=== PATIENT | male | born 1955 | race Caucasian/White ===

== ENCOUNTER 2021-05-25 08:44 | Outpatient (REF) | payer BC, SELFPAY ==
--- NOTE | ~2021-05-25 | US_ITS ---
EXAMINATION: US RETROPERITONEAL LIMITED (AORTA) CLINICAL INFORMATION: AAA without rupture. COMPARISON: Ultrasound aorta 11/24/2019 which measure the aneurysm by 3.7 x 3.7 cm. The ultrasound of the aorta dated 07/09/2018 demonstrated a 3.7 x 3.6 cm distal abdominal aortic aneurysm. TECHNIQUE: Steven-scale, color Doppler and spectral Doppler evaluation of the abdominal aorta. FINDINGS: There is a distal abdominal aortic aneurysm measuring 3.6 x 3.7 cm. There is scattered atherosclerotic disease present. The lumen appears diffusely irregular throughout its course. The measurements of the aorta in maximum AP and transverse dimensions respectively are as follows: Proximal: 3.2 x 3.1 cm. Mid: 2.9 x 3.0 cm. Distal: 3.6 x 3.7 cm. PSV: 93 cm/s. The measurements of the common iliac arteries in maximum AP and TRV dimensions are as follows: Right Common Iliac Artery: 1.3 x 1.5 cm. Left Common Iliac Artery: 1.3 x 1.3 cm. US/US abdominal aortic aneurysm IMPRESSION: 1. There is a 3.6 x 3.7 cm abdominal aortic aneurysm.. There is no change in the size when compared to the previous study dated 11/24/2019 and 07/09/2018.
== END 2021-05-25 08:45 | disposition home or self-care (01) ==
LOC: HO.US 08:44
PROVIDERS: PCP Internal Medicine; Visit Provider Internal Medicine
DX: I71.4 Abdominal aortic aneurysm, without rupture (principal)
CPT/HCPCS: 76706

== ENCOUNTER → 2021-06-13 09:49 | Outpatient (BNVA) | payer BC, SELFPAY | PROVIDERS: PCP Internal Medicine; Referring Provider Internal Medicine; Visit Provider Internal Medicine | DX: I25.10 Atherosclerotic heart disease of native coronary artery without angina pectoris (principal); I71.4 Abdominal aortic aneurysm, without rupture; Z95.5 Presence of coronary angioplasty implant and graft | CPT/HCPCS: 93005 ==

== ENCOUNTER 2022-06-07 10:46 | Outpatient (REF) | payer BC, SELFPAY ==
--- NOTE | ~2022-06-07 | US_ITS ---
EXAMINATION: US RETROPERITONEAL LIMITED (AORTA) CLINICAL INFORMATION: Abdominal aortic aneurysm without rupture. COMPARISON: Ultrasound aorta 05/25/2021 and 11/24/2019. TECHNIQUE: Steven-scale, color Doppler and spectral Doppler evaluation of the abdominal aorta. FINDINGS: There is fusiform aneurysm of the abdominal aorta. Scattered atherosclerotic plaque is seen. The measurements of the aorta in maximum AP and transverse dimensions respectively are as follows: Proximal: 3.3 x 2.9 cm. Mid: 2.5 x 2.8 cm. Distal: 4.1 x 3.3 cm. Previously measuring 3.6 x 3.7 cm. PSV: 76 cm/s. The measurements of the common iliac arteries in maximum AP and TRV dimensions are as follows: Right Common Iliac Artery: 1.1 x 1.2 cm. Left Common Iliac Artery: 1.0 x 1.2 cm. US/US abdominal aortic aneurysm IMPRESSION: Fusiform abdominal aortic aneurysm with maximum diameter 4.1 cm transverse diameter, previously measuring 3.7 cm.
== END 2022-06-07 10:47 | disposition home or self-care (01) ==
LOC: HO.US 10:46
PROVIDERS: Visit Provider Internal Medicine
DX: I71.4 Abdominal aortic aneurysm, without rupture (principal)
CPT/HCPCS: 76706

== ENCOUNTER 2022-06-15 07:38 | Outpatient (REF) | payer BC, SELFPAY ==
[2022-06-15 08:49] LABS: Alanine Aminotransferase 18 U/L (0-40); Albumin Level 4.3 g/dL (3.5-5.0); Alkaline Phosphatase 79 U/L (39-117); Aspartate Amino Transferase 23 U/L (5-37); Bilirubin Direct 0.3 mg/dL (0.0-0.5); Bilirubin Total 0.7 mg/dL (0.0-1.0); Cholesterol 151 mg/dL; HDL Cholesterol 48 mg/dL; LDL Cholesterol Calculated 83 mg/dl; Triglycerides 104 mg/dL
== END 2022-06-15 07:39 | disposition home or self-care (01) ==
LOC: HO.LAB 07:38
PROVIDERS: Visit Provider Internal Medicine
DX: I25.10 Atherosclerotic heart disease of native coronary artery without angina pectoris (principal); E78.5 Hyperlipidemia, unspecified
CPT/HCPCS: 36415; 80061; 80076

== ENCOUNTER → 2022-06-18 10:40 | Outpatient (BNVA) | payer BC, SELFPAY | PROVIDERS: PCP Internal Medicine; Referring Provider Internal Medicine; Visit Provider Internal Medicine | DX: I25.10 Atherosclerotic heart disease of native coronary artery without angina pectoris (principal); I71.4 Abdominal aortic aneurysm, without rupture | CPT/HCPCS: 93005 ==

== ENCOUNTER 2022-11-22 07:51 | Outpatient (REF) | payer BC, SELFPAY ==
--- NOTE | ~2022-11-22 | US_ITS ---
EXAMINATION: US RETROPERITONEAL LIMITED (AORTA) CLINICAL INFORMATION: Abdominal aortic aneurysm, without rupture. COMPARISON: US retroperitoneal limited (aorta) 06/07/2022 and 05/25/2021. TECHNIQUE: Steven-scale, color Doppler and spectral Doppler evaluation of the abdominal aorta. FINDINGS: The measurements of the aorta in maximum AP and transverse dimensions respectively are as follows: Proximal: 3.2 x 3.1 cm. Mid: 2.6 x 2.6 cm. Distal: 3.6 x 3.9 cm. PSV: 58.1 cm/s. The measurements of the common iliac arteries in maximum AP and TRV dimensions are as follows: Right Common Iliac Artery: 1.3 x 1.1 cm. Left Common Iliac Artery: 1.2 x 1.1 cm. US/US abdominal aortic aneurysm IMPRESSION: Mild aneurysmal dilatation of the distal abdominal aorta measuring 3.6 x 3.9 cm.
== END 2022-11-22 07:52 | disposition home or self-care (01) ==
LOC: HO.US 07:51
PROVIDERS: Visit Provider Internal Medicine
DX: I71.40 Abdominal aortic aneurysm, without rupture, unspecified (principal)
CPT/HCPCS: 76706

== ENCOUNTER → 2022-11-23 07:56 | Outpatient (REF) | payer BC, SELFPAY ==
--- NOTE | 2022-11-23 08:01 | CA_ITS ---
Transthoracic Echocardiogram Patient (Last, First, Middle): Winston John, Gender: Male Date of : 1955 Age: 67 Procedure Date: 11/23/2022 Procedure Type: Transthoracic Echocardiogram Location: OP Height: 182.88 cm Weight: 83.01 kg BSA: 2.05 m2 Heart Rate: bpm BP: 120 / 70 mmHg Director Search Marketing Strategies: CY Mckee MD: Joe Manjarrez MD Pickers Material Handlers: Keagan Elliott MD Symptoms: I71.4 - Abdominal aortic aneurysm, without rupture Study Quality: Technically Difficult/Contrast ECG Rhythm: Sinus Conclusions: - Grade 1 diastolic dysfunction otherwise essentially normal study Findings Procedure Information Contrast agent, definity, is being given per protocol without apparent complications. Left Ventricle Normal left ventricular size, thickness, and systolic function. The visually estimated ejection fraction is between 60-65%. Spectral Doppler is indicative of an impaired relaxation filling pattern. E/E prime ratio is <8, consistent with normal filling pressures. Evidence suggests grade I (mild) diastolic dysfunction. Right Ventricle Normal right ventricular cavity size and systolic function. Atria Both atria are normal in size. There is lipomatous hypertrophy of the interatrial septum. There is no evidence of interatrial shunt. Aortic Valve The aortic valve structure and function is likely normal. There is no aortic valve stenosis. There is no aortic valve regurgitation. Mitral Valve Normal mitral valve structure and function. There is no mitral valve regurgitation. There is no mitral valve stenosis. Pulmonic Valve The pulmonic valve was not well visualized. Tricuspid Valve Likely normal tricuspid valve structure and function. Tricuspid regurgitation envelope is inadequate for calculation of right ventricular systolic pressure. Indeterminate right atrial pressure. Great Vessels All visible segments of the aorta are normal in size. The pulmonary artery was not well visualized. Venous The inferior vena cava is normal in size and collapses greater than 50% with inspiration. Pericardium/Pleural There is no evidence of pericardial effusion. Measurements 2D Linear Measurements IVSd: 1.05 0.6-0.9/0.6-1.0 cm LVIDd: 5.43 3.9-5.3/4.2-5.9 cm LVIDd Index: 2.65 2.4-3.2/2.2-3.1 cm/m2 LVIDs: 4.04 2.0-3.6 cm LVPWd: 1.03 0.7-1.1 cm LA Diam: 3.00 2.7-3.8/3.0-4.0 cm LAIDs Index: 1.46 1.5-2.3 cm/m2 LV Mass: 274.00 67-162/88-224 g LV Mass Index: 133.66 43-95/49-115 g/m2 LVOT Diam: 2.40 3.0+(-)1.3 cm 2D Systolic Function EF 4C: 61.40 >55% EF 2C: 65.30 >55% EF BiP: 62.90 >55% Mitral Valve MV Pk E: 0.65 MV PK A: 0.71 MV Decel Time: 252.00 E/A: 0.90 E'Lateral: 9.57 E'Medial: 10.10 E/E' Med: 6.40 E/E' Lat: 6.80 PHT: 74.00 MVA PHT: 2.97 Decel [place]: 2.57 Aortic Valve AoV Pk Bryn: 1.08 AoV Mn Bryn: 0.73 AoV VTI: 0.24 AoV Pk Grad: 5.00 Aov Mn Grad: 3.00 KRISHNA Cont.VTI: 3.95 LVOT LVOT Pk Bryn: 0.90 LVOT Mn Bryn: 0.65 LVOT VTI: 0.21 LVOT Pk Grad: 3.00 LVOT Mn Grad: 2.00 LVOT Diam: 2.40 LVOT Area: 4.52 Diastolic Function MV Pk E: 0.65 MV Pk A: 0.71 E/A: 0.90 E'Medial: 10.10 E/E' Med: 6.40 E' Laterial: 9.57 E/E' Lat: 6.80 Right Ventricle TAPSE (mm): 23.00 TVS' Bryn: 11.60 Tricuspid Valve RA Press: 3.00 Great Vessels Aorta Sinus of Valsalva: 3.50 2.0-3.5 cm Ao Asc: 3.60 2.1-3.4 cm Pulmonary Valve PV Pk Bryn: 0.80 Peak PV Grad: 3.00 Updated in Other Vendor System with Status of Final Keagan Elliott MD electronically signed on 11/24/2022 1:52:49 PM with status of Final
== END ==
LOC: HO.CARD 07:56
PROVIDERS: Visit Provider Internal Medicine
DX: I71.40 Abdominal aortic aneurysm, without rupture, unspecified (principal)
CPT/HCPCS: 93306; Q9957

== ENCOUNTER → 2023-01-14 10:12 | Outpatient (BNVA) | payer BC, SELFPAY | PROVIDERS: PCP Family Medicine; Referring Provider Family Medicine; Visit Provider Internal Medicine | DX: Z13.89 Encounter for screening for other disorder (principal) ==

== ENCOUNTER 2023-01-17 08:28 | Outpatient (REF) | payer BC, SELFPAY ==
[2023-01-17 09:08] LABS: Basophils Percent Auto 0.4 % (0-2); Eosinophils Absolute Auto 0.3 X10*3/uL (0.0-0.4); Eosinophils Percent Auto 4.3 % (0-4); Hematocrit 40.5 % (42.0-52.0); Hemoglobin 13.4 g/dl (14.0-18.0); Imm Gran Abs Auto 0.02 X10*3/uL (0.00-0.03); Imm Gran Pct Auto 0.3 % (0.0-0.4); Lymphocytes Absolute Auto 1.9 X10*3/uL (1.2-4.9); Lymphocytes Percent Auto 26.7 % (20-40); MANUAL DIFF FLAG NO; Mean Corpuscular HGB Conc 33.1 g/dl (31.0-36.0); Mean Corpuscular Hemoglobin 29.7 pg (27.0-33.0); Mean Corpuscular Volume 89.8 fL (80.0-98.0); Mean Platelet Volume 9.1 fL (9.4-12.4); Monocytes Absolute Auto 0.7 X10*3/uL (0.1-1.2); Monocytes Percent Auto 10.2 % (2-11); Neutrophils Absolute Auto 4.2 x10*3/uL (2.0-8.3); Neutrophils Percent Auto 58.1 % (45-73); Platelet Count 269 X10*3/uL (160-400); Red Blood Count 4.51 X10*6/uL (4.60-5.80); Red Cell Distribution Width 12.8 % (11.0-16.0); White Blood Count 7.2 X10*3/uL (4.8-10.8)
[2023-01-17 09:44] LABS: Appearance Urine Cloudy; Color Urine Yellow; Glucose Urine UA Negative (Negative); Leukocyte Esterase Urine Negative (Negative); Nitrite Urine Negative (Negative); PH 5.5 (5.0-9.0); Urine Blood Negative (Negative); Urine Ketones Negative (Negative); Urine Protein Negative (Neg-Trace)
[2023-01-17 10:11] LABS: Creatinine Urine 143.93 mg/dL; Microalbum/Creatinine Ratio Ur 4.8 ug/mg cr
[2023-01-17 11:02] LABS: Albumin Level 4.2 g/dL (3.5-5.0); Alkaline Phosphatase 80 U/L (39-117); Anion Gap 12 (12-20); Aspartate Amino Transferase 28 U/L (5-37); Blood Urea Nitrogen 17 mg/dL (9-16); Calcium 9.5 mg/dL (8.4-10.2); Carbon Dioxide 25 mmol/L (22-29); Chloride 108 mmol/L (96-108); Cholesterol 142 mg/dL; Estimated Glomerular Filt Rate > 60; Glucose Fasting 90 mg/dL (60-99); HDL Cholesterol 41 mg/dL; LDL Cholesterol Calculated 80 mg/dl; Potassium 4.7 mmol/L (3.3-5.1); Sodium 140 mmol/L (135-145); Total Protein 6.5 g/dL (6.5-8.0); Triglycerides 106 mg/dL
[2023-01-17 11:08] LABS: Prostate Specific Antigen Scr 1.79 ng/mL (<0.05-4.0); TSH reflex Free T4 1.28 uIU/mL (0.32-4.0)
[2023-01-17 11:20] LABS: Alanine Aminotransferase 23 U/L (0-40)
== END 2023-01-17 08:29 | disposition home or self-care (01) ==
LOC: HO.LAB 08:28
PROVIDERS: PCP Family Medicine; Visit Provider Family Medicine
DX: Z00.00 Encounter for general adult medical examination without abnormal findings (principal); Z12.5 Encounter for screening for malignant neoplasm of prostate; I10 Essential (primary) hypertension
CPT/HCPCS: 36415; 80053; 80061; 81003; 82043; 84153; 84443; 85025

== ENCOUNTER 2023-02-15 08:59 | Outpatient (REF) | payer BC, SELFPAY ==
--- NOTE | ~2023-02-15 | XR_ITS ---
EXAMINATION: XR SHOULDER, LEFT CLINICAL INFORMATION: Reason for Exam M25.519 - Pain in unspecified shoulder COMPARISON: None TECHNIQUE: Four views of the shoulder. FINDINGS: No acute fracture or dislocation. Mild degenerative changes of the acromioclavicular and glenohumeral joints with degenerative spurring and subchondral cystic change. Soft tissues are unremarkable. XR/XR shoulder LT min 2V IMPRESSION: * Mild degenerative changes of the shoulder.
--- NOTE | ~2023-02-15 | XR_ITS ---
EXAMINATION: XR SHOULDER, RIGHT CLINICAL INFORMATION: Reason for Exam M25.519 - Pain in unspecified shoulder COMPARISON: None TECHNIQUE: Four views of the shoulder. FINDINGS: No acute fracture or dislocation. Mild degenerative changes of the acromioclavicular joint with degenerative spurring. Soft tissues are unremarkable. XR/XR shoulder RT min 2V IMPRESSION: * Mild degenerative changes of the shoulder.
== END 2023-02-15 09:00 | disposition home or self-care (01) ==
LOC: HO.XRAY 08:59
PROVIDERS: PCP Family Medicine; Visit Provider Family Medicine
DX: M25.512 Pain in left shoulder (principal); M25.511 Pain in right shoulder
CPT/HCPCS: 73030

== ENCOUNTER 2023-05-09 10:43 | Outpatient (AMB) | payer BC, SELFPAY ==
--- NOTE | 2023-05-09 10:55 | MHC.OFFVIS ---
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 Patient reports that he fell from a ladder many years ago while in the [employer].Since this injury he has had ongoing pain that has worsened over the last two months. He has tried and failed Physical therapy with no improvement. Feels increased pain with driving and sleeping. 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 The patient states that his pain started about a year ago. He initially described his pain as intermittent in nature. About two or three months ago, his pain started to worsen. He describes his pain as constant in nature. He has difficulty sleeping at night due to pain. He states that he is able to drive for about 30 minutes before his pain worsens. [facility] Medical History Abdominal aortic aneurysm without rupture Atherosclerotic cardiovascular disease Family history of abdominal aortic aneurysm Family history of coronary artery disease Surgical History Stented coronary artery Family History Father CAD (coronary artery disease) Mother CAD (coronary artery disease) Social History Housing: House Patient Tobacco Use Status: Never used Tobacco e-Cigarette/Vaping Use: Never Used service: Yes Current occupational status: retired Physical Exam Const General: no acute distress, alert and awake Orientation/consciousness: patient oriented x3 HEENT Head: Yes normocephalic and Yes atraumatic Eyes EOM: EOMs intact bilaterally Resp Effort & Inspection: normal respiratory effort and able to speak in complete sentences Cardio Jugular venous distension: no JVD Skin General skin exam: turgor normal Rashes: no rashes Neuro General: patient oriented x3 Psych Appearance: grossly normal Affect: normal affect Attitude: cooperative Office Procedures Joint Injection/Drain Joint Injection/Drain Details: Injected 1 mL of Decadron and 3 mL 1% lidocaine and 3 mL of 0.25% Marcaine. Site was prepped using aseptic technique. Patient tolerated the procedure well. Primary Site: left shoulder Approach Used: posterolateral Coding - Large joint Procedure code (CPT) selection complete Results Reviewed Results Reviewed: 05/09/23 11:13 BUPivacaine MPF 0.25 % [Sensorcaine-MPF 0.25% 10 ML] 10 ml .ROUTE .STK-MED ONE Lidocaine HCl 2 % MPF [Xylocaine 2 % MPF] 5 ml .ROUTE .STK-MED ONE dexAMETHasone sod phosphate [Decadron] 4 mg .ROUTE .STK-MED ONE I personally reviewed relevant radiographs. 02/15/23: XR SHOULDER, RIGHT FINDINGS: No acute fracture or dislocation. Mild degenerative changes of the acromioclavicular joint with degenerative spurring. Soft tissues are unremarkable. IMPRESSION: * Mild degenerative changes of the shoulder. 02/15/23: XR SHOULDER, LEFT FINDINGS: No acute fracture or dislocation. Mild degenerative changes of the acromioclavicular and glenohumeral joints with degenerative spurring and subchondral cystic change. Soft tissues are unremarkable. IMPRESSION: * Mild degenerative changes of the shoulder. Assessment & Plan Assessment & Plan (1) Bursitis of left shoulder: Code(s): M75.52 - Bursitis of left shoulder Plan Patient had left shoulder bursitis. I injected his shoulder and recommend exercises at home (handout was given) and NSAIDs. May f/u PRN I encouraged him to continue with home exercises. A shoulder exercise handout was provided to the patient. Scribed for Dr. Ra Leahy by Roman Covarrubias, medical technologist chief, on 05/09/2023. I, Dr. Ra Leahy, have personally reviewed and agree with the information entered by the scribe. Coding Level of Care Code New Pt Level 3 (77913) Diagnoses Bursitis of left shoulder M75.52 CPT Codes Coding - Large joint: 33315 - Large joint ([id number])
== END 2023-05-09 11:43 | disposition home or self-care (01) ==
PROVIDERS: PCP Family Medicine; Visit Provider Orthopaedic Surgery
DX: M75.52 Bursitis of left shoulder (principal)
CPT/HCPCS: 20610; 99203

== ENCOUNTER → 2023-05-09 10:43 | Outpatient (BNVA) | payer BC, SELFPAY | PROVIDERS: PCP Family Medicine; Visit Provider Orthopaedic Surgery | DX: M75.52 Bursitis of left shoulder (principal) | CPT/HCPCS: 20610; J1100 ==

== ENCOUNTER 2023-06-13 07:08 | Outpatient (REF) | payer BC, SELFPAY ==
[2023-06-13 07:21] LABS: MANUAL DIFF FLAG NO
[2023-06-13 07:39] LABS: Basophils Percent Auto 0.2 % (0-2); Eosinophils Absolute Auto 0.4 X10*3/uL (0.0-0.4); Eosinophils Percent Auto 3.5 % (0-4); Hematocrit 40.7 % (42.0-52.0); Hemoglobin 13.6 g/dl (14.0-18.0); Imm Gran Abs Auto 0.04 X10*3/uL (0.00-0.03); Imm Gran Pct Auto 0.3 % (0.0-0.4); Immature Retic Fraction 3.8 % (2.3-13.4); Lymphocytes Absolute Auto 2.6 X10*3/uL (1.2-4.9); Lymphocytes Percent Auto 20.6 % (20-40); Mean Corpuscular HGB Conc 33.4 g/dl (31.0-36.0); Mean Corpuscular Hemoglobin 29.8 pg (27.0-33.0); Mean Corpuscular Volume 89.3 fL (80.0-98.0); Mean Platelet Volume 9.3 fL (9.4-12.4); Monocytes Absolute Auto 1.5 X10*3/uL (0.1-1.2); Monocytes Percent Auto 11.5 % (2-11); Neutrophils Absolute Auto 8.2 x10*3/uL (2.0-8.3); Neutrophils Percent Auto 63.9 % (45-73); Platelet Count 256 X10*3/uL (160-400); Red Blood Count 4.56 X10*6/uL (4.60-5.80); Red Cell Distribution Width 12.9 % (11.0-16.0); Retic HGB Equivalent 35.2 pg (30.0-35.0); Reticulocyte Percent 1.2 % (0.5-1.8); Reticulocytes Absolute 0.053 X10*6/uL (0.026-0.095); White Blood Count 12.7 X10*3/uL (4.8-10.8)
[2023-06-13 08:14] LABS: Alanine Aminotransferase 20 U/L (0-40); Albumin Level 4.1 g/dL (3.5-5.0); Alkaline Phosphatase 75 U/L (39-117); Anion Gap 11 (12-20); Aspartate Amino Transferase 22 U/L (5-37); Blood Urea Nitrogen 16 mg/dL (9-16); Calcium 9.6 mg/dL (8.4-10.2); Carbon Dioxide 26 mmol/L (22-29); Chloride 110 mmol/L (96-108); Cholesterol 116 mg/dL (<200); Estimated Glomerular Filt Rate > 60; Glucose Fasting 88 mg/dL (60-99); HDL Cholesterol 44 mg/dL (>40); Iron 62 mcg/dL (45-160); LDL Cholesterol Calculated 54 mg/dL (<100); Percent Iron Saturation 23 % (15-50); Potassium 3.9 mmol/L (3.3-5.1); Sodium 143 mmol/L (135-145); Total Iron Binding Capacity 268 mcg/dL (228-428); Total Protein 6.9 g/dL (6.5-8.0); Triglycerides 90 mg/dL (<150); Unsaturated Iron Binding 206 ug/dL
[2023-06-13 08:55] LABS: Folate 16.7 ng/mL (> or = 4.0); Vitamin B12 > 2000 pg/mL (200-900)
== END 2023-06-13 07:09 | disposition home or self-care (01) ==
LOC: HO.LAB 07:08
PROVIDERS: PCP Family Medicine; Visit Provider Family Medicine
DX: Z00.00 Encounter for general adult medical examination without abnormal findings (principal); E53.8 Deficiency of other specified B group vitamins; E78.5 Hyperlipidemia, unspecified; D64.9 Anemia, unspecified
CPT/HCPCS: 36415; 80053; 80061; 82607; 82746; 83540; 85025; 85045

== ENCOUNTER 2023-06-17 09:20 | Outpatient (AMB) | payer BC, SELFPAY ==
[2023-06-17 09:24] VITALS: BP 122/74; PULSE 71; RESP 12; O2SAT 97; BMI 25.8
--- NOTE | 2023-06-17 09:24 | A.OFFPC_ITS ---
Vital Signs 06/17/23 09:24 Height 6 ft Weight 190 lb 6 oz BMI 25.8 BP 122/74 Blood Pressure Location Lt brachial Position Sitting Respiration 12 Pulse 71 Pulse Source Pulse Oximeter Pulse Oximetry (%) 97 Oxygen Delivery Method Room Air Intake Visit Reasons: f/u HLD Intake Note: Patient is here for follow up on cholesterol. Patient would like his meds for 90 days refills. Allergies Penicillins [PENICILLINS] Allergy (Severe, Verified 06/17/23 09:27) SWELLING, THROAT Tobacco use date assessed: 06/17/23 Fall risk assessment: No Falls in past year Last assessed Fall Risk: 06/17/23 Dental Screening Dental Screen Date: 06/17/23 Did you have a dental visit in the last 12 months?: Yes Did you have a dental problem in the last 6 months where you did not have access to dental care?: No Was dental information given to patient?: Patient has dentist HPI f/u HLD HPI Details 67 y/o male presents to f/u [facility][NOTE 3]. Labs were drawn 06/13/23. Reviewed labs with pt. Ongoing mild anemia. Triglycerides 90. TC 116. LDL 54. HDL 44. He is on artovastatin 80mg daily. He has an appt. with Cardiology in December. PENDING SALE TO [facility] Medical History Family history of abdominal aortic aneurysm Family history of coronary artery disease Abdominal aortic aneurysm without rupture Atherosclerotic cardiovascular disease Surgical History Stented coronary artery Family History Father CAD (coronary artery disease) Mother CAD (coronary artery disease) Social History Housing: House Patient Tobacco Use Status: Never used Tobacco e-Cigarette/Vaping Use: Never Used service: Yes Current occupational status: retired Cognitive needs: No Hearing needs: No Vision needs: Yes (wears prescription glasses) Review of Systems Const Denies chills, Denies fatigue, Denies fever(s), Denies headache(s) and Denies weakness ENT Denies dizziness and Denies headache(s) Card Denies dyspnea Resp Denies cough, Denies dyspnea, Denies wheezing and Denies other (shortness of breath) Musc Denies numbness and Denies tingling Neuro Denies dizziness, Denies headache(s), Denies numbness, Denies tingling and Denies weakness Psych Denies anxiety and Denies depression Endo Denies fatigue Aller/Immun Denies wheezing Physical exam (Primary Care) Vital Signs: Last Vital Signs Pulse 71 06/17/23 09:24 Resp 12 06/17/23 09:24 BP 122/74 06/17/23 09:24 Pulse Ox 97 06/17/23 09:24 Oxygen Delivery Method Room Air 06/17/23 09:24 BMI result Body Mass Index 25.8 Tobacco/Smoking Status: Tobacco use Status Tobacco use date assessed 06/17/23 06/17/23 09:33 Patient Tobacco Use Status Never used Tobacco 06/17/23 09:33 e-Cigarette/Vaping Use Never Used 06/17/23 09:33 Const General: well developed; No acute distress Nutritional Appearance: well nourished Orientation/consciousness: patient oriented x3 HENMT Head: Yes normocephalic and Yes atraumatic Eyes General: appearance normal, both eyes and all related structures Pupils: Equal, round and reactive pupils present EOM: EOMs intact bilaterally Resp Effort & Inspection: normal respiratory effort Neuro General: patient oriented x3 and gait normal Cranial nerves: Yes Equal, round and reactive pupils present Psych Affect: normal affect Assessment and Plan Assessment & Plan (1) Mild anemia: Code(s): D64.9 - Anemia, unspecified Plan: Slightly improved. Will continue to monitor He is taking a B12 supplement. Encouraged him to also look for iron sources in his diet. (2) Hyperlipidemia: Code(s): E78.5 - Hyperlipidemia, unspecified Plan: LDL cholesterol now at goal of less than 70 for patient with coronary artery disease Continue atorvastatin and Zetia Continue diet low in saturated fats and cholesterol. (3) Atherosclerotic cardiovascular disease: Code(s): I25.10 - Atherosclerotic heart disease of [place] coronary artery without angina pectoris Plan: Stable Follow-up with Cardiology. Medications: Changed From ezetimibe (Zetia) 10 mg PO DAILY 30 tabs 0RF To ezetimibe (Zetia) 10 mg PO DAILY 90 days 90 tabs 3RF Coding Level of Care Code Est Pt Level 3 (48752) Diagnoses Mild anemia D64.9 Hyperlipidemia E78.5 Atherosclerotic cardiovascular disease I25.10
== END 2023-06-17 09:50 | disposition home or self-care (01) ==
PROVIDERS: PCP Family Medicine; Visit Provider Family Medicine
DX: D64.9 Anemia, unspecified (principal); E78.5 Hyperlipidemia, unspecified; I25.10 Atherosclerotic heart disease of native coronary artery without angina pectoris
CPT/HCPCS: 99213

== ENCOUNTER 2023-12-24 08:11 | Outpatient (AMB) | payer BC, SELFPAY ==
--- NOTE | 2023-12-24 08:19 | A.OFFVIS_ITS ---
Intake Vital Signs 12/24/23 08:22 Height 6 ft Weight 187 lb 6.287 oz BMI 25.4 BP 118/66 Blood Pressure Location Lt brachial Position Sitting Pulse 60 Intake Visit Reasons: 1 year follow up Intake Note: 1 year follow up w/ EKG Hospice Volunteer Coordinator Required: No Accompanied by: Self / Same As Patient Allergies Penicillins [PENICILLINS] Allergy (Severe, Verified 12/24/23 08:23) SWELLING, THROAT Medication List - Last Reconciled 12/24/23 by Joe Manjarrez MD aspirin (Adult Aspirin Regimen) 81 mg PO DAILY atorvastatin 80 mg PO DAILY 90 days ezetimibe (Zetia) 10 mg PO DAILY 90 days HPI HPI Comments History of Present Illness Details Winston returns for follow-up regarding coronary disease. In 2017, he underwent right coronary artery stenting. Overall, doing good. He swims regularly with no issues. Unrestricted physical activities. [facility] Medical History Family history of abdominal aortic aneurysm Family history of coronary artery disease Abdominal aortic aneurysm without rupture Atherosclerotic cardiovascular disease Surgical History Stented coronary artery Family History Father CAD (coronary artery disease) Mother CAD (coronary artery disease) Social History Housing: House Patient Tobacco Use Status: Never used Tobacco e-Cigarette/Vaping Use: Never Used service: Yes Current occupational status: retired Cognitive needs: No Hearing needs: No Vision needs: Yes (wears prescription glasses) Review of Systems Const Denies weakness ENT Denies dizziness Card Denies chest pain, Denies chest pain with activity, Denies syncope, Denies rapid heart rate, Denies pedal edema, Denies edema, Denies leg edema, Denies lightheadedness, Denies palpitations, Denies dyspnea, Denies dyspnea on exertion and Denies orthopnea Resp Denies cough, Denies dyspnea and Denies dyspnea on exertion GI Denies hematochezia and Denies change in stool character Musc Denies abnormal gait, Denies muscle cramps, Denies muscle weakness, Denies numbness, Denies radiating pain into limb and Denies tingling Neuro Denies abnormal gait, Denies dizziness, Denies syncope, Denies numbness, Denies tingling and Denies weakness Endo Denies palpitations Physical Exam Vital Signs: Last Vital Signs Pulse 60 12/24/23 08:22 BP 118/66 12/24/23 08:22 BMI result Body Mass Index 25.4 Const General: comfortable and no acute distress Orientation/consciousness: patient oriented x3 HEENT Other: Unremarkable Head: Yes normal to inspection Neck Neck: Yes normal visual inspection Chest Chest palpation & inspection: normal inspection of the chest Resp Auscultation: clear to auscultation bilaterally Cardio Palpation: normal PMI Heart sounds: S1 normal heart sound present, S2 normal heart sound present, no gallops, no murmurs and no rubs GI Palpation (GI): Soft to palpation Back/Spine/Pelvis Other: unremarkable Skin General skin exam: no rashes or lesions noted Neuro General: patient oriented x3 Extrem General: Yes normal to inspection Psych Mental Status: mental status grossly normal Office Procedures EKG Details: EKG with sinus rhythm at 60/Min; no significant ST-T changes and otherwise unremarkable. [place]. [address]-[id number], Complete Assessment & Plan Assessment & Plan (1) Atherosclerotic cardiovascular disease: Code(s): I25.10 - Atherosclerotic heart disease of [place] coronary artery without angina pectoris Plan: Overall, stable. Angina free. Continue aspirin and statin/Zetia. Lipids are well controlled. (2) Abdominal aortic aneurysm without rupture: Code(s): I71.4 - Abdominal aortic aneurysm, without rupture Plan: Last ultrasound, mild aneurysmal dilatation of the distal abdominal aorta. 3.6/3.9 cm. Repeat study is pending. In the echocardiogram, ascending aortic size is normal. To recall, there is a family history of aortic aneurysm. Coding Level of Care Code Est Pt Level 3 (93232) Diagnoses Atherosclerotic cardiovascular disease I25.10 Abdominal aortic aneurysm without rupture I71.4 CPT Codes EKG - CPT: 96648-[id number], Complete ([id number])
[2023-12-24 08:22] VITALS: BP 118/66; PULSE 60; BMI 25.4
== END 2023-12-24 08:37 | disposition home or self-care (01) ==
PROVIDERS: Visit Provider Internal Medicine
DX: I25.10 Atherosclerotic heart disease of native coronary artery without angina pectoris (principal); I71.40 Abdominal aortic aneurysm, without rupture, unspecified
CPT/HCPCS: 93010; 99213

== ENCOUNTER → 2023-12-24 08:11 | Outpatient (BNVA) | payer BC, SELFPAY | PROVIDERS: Visit Provider Internal Medicine | DX: I25.10 Atherosclerotic heart disease of native coronary artery without angina pectoris (principal); I71.40 Abdominal aortic aneurysm, without rupture, unspecified; Z79.82 Long term (current) use of aspirin; Z79.899 Other long term (current) drug therapy | CPT/HCPCS: 93005 ==

== ENCOUNTER 2024-01-07 07:53 | Outpatient (REF) | payer BC, SELFPAY ==
--- NOTE | ~2024-01-07 | US_ITS ---
EXAMINATION: US RETROPERITONEAL LIMITED (AORTA) CLINICAL INFORMATION: Abdominal aortic aneurysm, without rupture, unspecified. COMPARISON: Abdominal ultrasound 11/22/2022 and 06/07/2022. TECHNIQUE: Steven-scale, color Doppler and spectral Doppler evaluation of the abdominal aorta. FINDINGS: The measurements of the aorta in maximum AP and transverse dimensions respectively are as follows: Proximal: 2.8 x 2.8 cm. Mid: 2.9 x 2.9 cm. Distal: 3.9 x 4.3 cm. PSV: 49 cm/s. The measurements of the common iliac arteries in maximum AP and TRV dimensions are as follows: Right Common Iliac Artery: 1.4 x 1.4 cm. Left Common Iliac Artery: 1.2 x 1.2 cm. US/US abdominal aortic aneurysm IMPRESSION: Mild interval increase in size of abdominal aortic aneurysm, now measuring 3.9 x 4.3 cm (previously 3.6 x 3.9 cm).
== END 2024-01-07 07:54 | disposition home or self-care (01) ==
LOC: HO.US 07:53
PROVIDERS: PCP Family Medicine; Visit Provider Internal Medicine
DX: I71.40 Abdominal aortic aneurysm, without rupture, unspecified (principal)
CPT/HCPCS: 76706

== ENCOUNTER 2024-03-16 08:56 | Outpatient (AMB) | payer BC, SELFPAY ==
--- NOTE | 2024-03-16 08:58 | A.OFFPC_ITS ---
Vital Signs 03/16/24 08:59 Height 6 ft Weight 188 lb BMI 25.5 BP 120/64 Blood Pressure Location Lt brachial Position Sitting Pulse 70 Pulse Source Pulse Oximeter Pulse Oximetry (%) 97 Oxygen Delivery Method Room Air Intake Visit Reasons: CPE with follow-up labs and health maintenance Intake Note: Patient is here for his physical, did not get his labs done, he was unaware t here were orders. Allergies Penicillins [PENICILLINS] Allergy (Severe, Verified 03/16/24 09:01) SWELLING, THROAT Tobacco use date assessed: 03/16/24 Fall risk assessment: No Falls in past year Last assessed Fall Risk: 03/16/24 Dental Screening Dental Screen Date: 03/16/24 Did you have a dental visit in the last 12 months?: Yes Did you have a dental problem in the last 6 months where you did not have access to dental care?: No Was dental information given to patient?: Patient has dentist HPI CPE with follow-up labs and health maintenance HPI Details 68 y/o male presents for a CPE with f/u labs and health maintenance. No recent labs to review. [facility] Medical History Family history of abdominal aortic aneurysm Family history of coronary artery disease Abdominal aortic aneurysm without rupture Atherosclerotic cardiovascular disease Surgical History Stented coronary artery Family History Father CAD (coronary artery disease) Mother CAD (coronary artery disease) Social History Housing: House Patient Tobacco Use Status: Never used Tobacco e-Cigarette/Vaping Use: Never Used service: Yes Current occupational status: retired Cognitive needs: No Hearing needs: No Vision needs: Yes (wears prescription glasses) Questionnaire PHQ-9 Over the last 2 weeks, how often have you been bothered by any of the following problems? 1. Little interest or pleasure in doing things: not at all 2. Feeling down, depressed, or hopeless: not at all 3. Trouble falling or staying asleep, or sleeping too much: not at all 4. Feeling tired or having little energy: not at all 5. Poor appetite or overeating: not at all 6. Feeling bad about yourself - or that you are a failure or have let yourself or your family down: not at all 7. Trouble concentrating on things, such as reading the newspaper or watching television: not at all 8. Moving or speaking so slowly that other people could have noticed. Or the opposite - being so fidgety or restless that you have been moving around a lot more than usual: not at all 9. Thoughts that you would be better off or of hurting yourself in some way: not at all Total score: 0 Depression Screening Interpretation: Negative Depression Screening Done: Yes 34393 - PHQ-9 Billing: Yes Source: Developed by Drs. Brooks Espinoza, Demetrice Tobin, Jarvis Gallegos and colleagues, with an educational aviva from [employer]. Thrive Questionnaire Date Thrive assessed: 03/16/24 I am a: Patient What is your living situation today?: I have a steady place to live Within the past 12 months, did the food you bought not last and you didn't have the money to get more?: Never true Within the past 12 months, did you worry whether your food would run out before you got money to buy more?: Never true Do you have trouble paying for medicines?: I choose not to answer this question Do you have trouble getting transportation to medical appointments?: I choose not to answer this question Do you have trouble paying your heating and electricity bill?: I choose not to answer this question Do you have trouble taking care of your child, family member or friend?: I choose not to answer this question Do you have trouble with day-to-day activities such as bathing, preparing meals, shopping, managing finances, etc.?: I choose not to answer this question Are you currently unemployed and looking for a job?: I choose not to answer this question Are you interested in more education?: I choose not to answer this question THRIVE Score: 0 AUDIT C Alcohol Use Questionnaire (AUDIT-C) 1. How often do you have a drink containing alcohol?: Monthly or less 2. How many drinks containing alcohol do you have on a typical day when you are drinking?: 1 or 2 3. How often do you have six or more drinks on one occasion?: Never Total Score: 1 ROBY-7 AMB Questionnaire ROBY-7 Date ROBY - 7 assessed: 03/16/24 Feeling nervous, anxious, or on edge: 0 = Not at all Not being able to stop or control worryin = Not at all Worrying too much about different things: 0 = Not at all Trouble relaxin = Not at all Being so restless that it is hard to sit still: 0 = Not at all Becoming easily annoyed or irritable: 0 = Not at all Feeling afraid as if something awful might happen: 0 = Not at all Total ROBY-7 score (0-4 normal; 5-9 mild; 10-14 moderate; 15-21 severe): 0 Source: Developed by Drs. Brooks Espinoza, Demetrice Tobin, Jarvis Gallegos and colleagues, with an educational aviva from [employer]. ROBY-7 Assessment Billing ROBY-7 Assessment Tool: ROBY-7 Assessment 57197 Review of Systems Const Denies chills, Denies fatigue, Denies fever(s), Denies headache(s) and Denies weakness Eyes Denies change in vision ENT Denies dizziness, Denies headache(s), Denies hearing loss, Denies nasal congestion, Denies sinus pain, Denies sinus pressure and Denies sore throat Card Denies chest pain, Denies lightheadedness, Denies dyspnea and Denies other (palpitations) Resp Denies cough, Denies dyspnea and Denies wheezing GI Denies abdominal pain, Denies melena, Denies hematochezia, Denies change in bowel habits, Denies dyspepsia and Denies nausea Denies hematuria and Denies dysuria Musc Denies abnormal gait, Denies myalgias, Denies arthralgias, Denies numbness and Denies tingling Skin/Breast Denies rash, Denies unusual bruising and Denies wounds Neuro Denies abnormal gait, Denies dizziness, Denies headache(s), Denies memory loss, Denies numbness, Denies Sensory deficit (Neuro), Denies tingling and Denies weakness Psych Denies anxiety, Denies depression and Denies memory loss Endo Denies cold intolerance, Denies fatigue, Denies heat intolerance, Denies polydipsia and Denies polyuria Reinaldo/Lymph Denies easy bleeding and Denies easy bruising Aller/Immun Denies wheezing Physical exam (Primary Care) Vital Signs: Last Vital Signs Pulse 70 03/16/24 08:59 BP 120/64 03/16/24 08:59 Pulse Ox 97 03/16/24 08:59 Oxygen Delivery Method Room Air 03/16/24 08:59 BMI result Body Mass Index 25.5 Tobacco/Smoking Status: Tobacco use Status Tobacco use date assessed 03/16/24 03/16/24 09:06 Patient Tobacco Use Status Never used Tobacco 03/16/24 08:59 e-Cigarette/Vaping Use Never Used 03/16/24 08:59 PHQ-9: PHQ-9 Score PHQ-9: Total score 0 03/16/24 09:06 Depression Screening Interpretation: Negative Thrive Assessment: Date of Thrive Assessment Date Thrive assessed 03/16/24 03/16/24 09:06 Const General: no acute distress, well developed, alert and awake Nutritional Appearance: well nourished Orientation/consciousness: patient oriented x3 HENMT Head: Yes normocephalic and Yes atraumatic Ears: hearing grossly normal bilaterally and TM's normal bilaterally General nose exam: Normal external nose present and Normal nares present Mouth: Normal oral and palatal mucosa present and moist mucous membranes Teeth and gingiva: dentition normal Throat: Yes posterior oropharynx normal Eyes General: appearance normal, both eyes and all related structures Pupils: Equal, round and reactive pupils present and Pupil accommodation reflex normal EOM: EOMs intact bilaterally Neck Neck: Yes normal visual inspection, Yes no lymphadenopathy and Yes trachea midline Thyroid: Thyroid normal Carotids: no bruits Lymphatic: no lymphadenopathy noted Chest Chest palpation & inspection: normal inspection of the chest Resp Effort & Inspection: normal respiratory effort Auscultation: clear to auscultation bilaterally Cardio Rate: regular rate Rhythm: regular rhythm Heart sounds: S1 normal heart sound present, S2 normal heart sound present, no gallops, no murmurs and no rubs Bruits: no abdominal aortic bruits and no carotid bruits GI Palpation (GI): No Abdominal aortic bruit present, Soft to palpation, nontender, No hepatosplenomegaly present and No Rebound tenderness present Auscultation: normal bowel sounds General: Yes no CVA tenderness Back/Spine/Pelvis Back: no CVA tenderness Cervical Spine: cervical ROM normal and No Cervical spine tenderness Thoracic/Lumbar Spine: thoraco-lumbar ROM normal, No pain with thoraco-lumbar ROM, No thoracic spinal tenderness and No lumbar spinal tenderness Skin Lesions: no lesions Rashes: no rashes Trauma: no lacerations or abrasions Wounds: no wounds Nails: normal Neuro General: patient oriented x3 Cranial nerves: Yes Equal, round and reactive pupils present Cognition (Neuro): normal cognition Gait exam (Neuro): Normal gait present Motor exam (neuro): 5/5 motor strength present throughout Sensory Exam: No Sensory deficit (Neuro) Deep tendon reflexes (DTR's): Right patellar reflex intensity grade: 2+ and Left patellar reflex intensity grade: 2+ Extrem General: Yes normal to inspection and No edema Psych Appearance: grossly normal Affect: normal affect Attitude: cooperative Thought process: Normal thought process present Assessment and Plan Assessment & Plan (1) Adult general medical exam: Code(s): Z00.00 - Encounter for general adult medical examination without abnormal findings Plan: 68-year-old?male?presents?for?complete?physical?exam Encouraged?healthy?diet?with?active?lifestyle?and?plenty?of?exercise (2) Atherosclerotic cardiovascular disease: Code(s): I25.10 - Atherosclerotic heart disease of [place] coronary artery without angina pectoris Plan: Stable. Followed?by?DrSamm?Loki Continue?atorvastatin,?Zetia?and?aspirin (3) Immunization counseling: Code(s): Z71.85 - Encounter for immunization safety counseling Plan: Patient?has?had?pneumonia?vaccines. Has?not?had?RSV?vaccine?and?I?recommended?this (4) Screening for prostate cancer: Code(s): Z12.5 - Encounter for screening for malignant neoplasm of prostate Plan: Check?PSA?level (5) Screening for colon cancer: Code(s): Z12.11 - Encounter for screening for malignant neoplasm of colon Plan: Patient?says?he?had?colonoscopy?3?years?ago?which?was?normal Will?obtain?report Coding Level of Care Code Est Pt Level 3 (83293) Est Pt Prev Care >65y(52847) Diagnoses Adult general medical exam Z00.00 Atherosclerotic cardiovascular disease I25.10 Immunization counseling Z71.85 Screening for prostate cancer Z12.5 Screening for colon cancer Z12.11 Additional Codes ROBY-7 Assessment Billing - ROBY-7 Assessment Tool: ROBY-7 Assessment [id number] ([id number])
[2024-03-16 08:59] VITALS: BP 120/64; PULSE 70; O2SAT 97; BMI 25.5
== END 2024-03-16 10:24 | disposition home or self-care (01) ==
PROVIDERS: PCP Family Medicine; Visit Provider Family Medicine
DX: Z00.00 Encounter for general adult medical examination without abnormal findings (principal); I25.10 Atherosclerotic heart disease of native coronary artery without angina pectoris; Z71.85 Encounter for immunization safety counseling; Z12.5 Encounter for screening for malignant neoplasm of prostate; Z12.11 Encounter for screening for malignant neoplasm of colon
CPT/HCPCS: 99397

== ENCOUNTER 2024-03-17 07:06 | Outpatient (REF) | payer BC, SELFPAY ==
[2024-03-17 07:19] LABS: MANUAL DIFF FLAG NO
[2024-03-17 07:43] LABS: Basophils Percent Auto 0.3 % (0-2); Eosinophils Absolute Auto 0.3 X10*3/uL (0.0-0.4); Eosinophils Percent Auto 4.5 % (0-4); Hematocrit 42.4 % (42.0-52.0); Hemoglobin 14.1 g/dl (14.0-18.0); Imm Gran Abs Auto 0.02 X10*3/uL (0.00-0.03); Imm Gran Pct Auto 0.3 % (0.0-0.4); Lymphocytes Absolute Auto 2.6 X10*3/uL (1.2-4.9); Lymphocytes Percent Auto 35.6 % (20-40); Mean Corpuscular HGB Conc 33.3 g/dl (31.0-36.0); Mean Corpuscular Hemoglobin 30.1 pg (27.0-33.0); Mean Corpuscular Volume 90.4 fL (80.0-98.0); Mean Platelet Volume 9.1 fL (9.4-12.4); Monocytes Absolute Auto 0.7 X10*3/uL (0.1-1.2); Monocytes Percent Auto 9.1 % (2-11); Neutrophils Absolute Auto 3.7 x10*3/uL (2.0-8.3); Neutrophils Percent Auto 50.2 % (45-73); Platelet Count 265 X10*3/uL (160-400); Red Blood Count 4.69 X10*6/uL (4.60-5.80); Red Cell Distribution Width 12.9 % (11.0-16.0); White Blood Count 7.4 X10*3/uL (4.8-10.8)
[2024-03-17 07:51] LABS: Appearance Urine Clear; Color Urine Yellow; Glucose Urine UA Negative (Negative); Leukocyte Esterase Urine Negative (Negative); Nitrite Urine Negative (Negative); PH 5.5 (5.0-9.0); Specific Gravity - Urine 1.015 (1.005-1.025); Urine Blood Negative (Negative); Urine Ketones Negative (Negative); Urine Protein Negative (Neg-Trace)
[2024-03-17 08:16] LABS: Creatinine Urine 94.62 mg/dL; Microalbum/Creatinine Ratio Ur 7.3 ug/mg cr (<30)
[2024-03-17 08:21] LABS: Alanine Aminotransferase 21 U/L (0-40); Albumin Level 4.2 g/dL (3.5-5.0); Alkaline Phosphatase 73 U/L (39-117); Anion Gap 12 (12-20); Aspartate Amino Transferase 23 U/L (5-37); Bilirubin Total 0.8 mg/dL (0.0-1.0); Blood Urea Nitrogen 17 mg/dL (9-16); Calcium 9.7 mg/dL (8.4-10.2); Carbon Dioxide 27 mmol/L (22-29); Chloride 109 mmol/L (96-108); Cholesterol 123 mg/dL (<200); Estimated Glomerular Filt Rate > 60; Glucose Fasting 100 mg/dL (60-99); HDL Cholesterol 48 mg/dL (>40); LDL Cholesterol Calculated 60 mg/dL (<100); Potassium 4.1 mmol/L (3.3-5.1); Sodium 144 mmol/L (135-145); Triglycerides 77 mg/dL (<150)
[2024-03-17 08:41] LABS: TSH reflex Free T4 1.54 uIU/mL (0.32-4.0)
== END 2024-03-17 07:07 | disposition home or self-care (01) ==
LOC: HO.LAB 07:06
PROVIDERS: PCP Family Medicine; Visit Provider Family Medicine
DX: Z00.00 Encounter for general adult medical examination without abnormal findings (principal); I10 Essential (primary) hypertension; Z12.5 Encounter for screening for malignant neoplasm of prostate
CPT/HCPCS: 36415; 80053; 80061; 81003; 82043; 82570; 84153; 84443; 85025

== ENCOUNTER → 2024-05-11 15:38 | Outpatient (AMB) | payer BC, SELFPAY ==
--- NOTE | 2024-05-11 15:34 | MHC.PC.OV ---
Intake Visit Reasons: f/u CPE-labs via telemedicine Allergies Penicillins [PENICILLINS] Allergy (Severe, Verified 05/11/24 15:35) SWELLING, THROAT Tobacco use date assessed: 03/16/24 Dental Screening Dental Screen Date: 03/16/24 HPI f/u CPE-labs via telemedicine HPI Details 68 y/o male presents to f/u CPE-labs via telemedicine. Labs drawn 03/17/24. Reviewed labs with pt. Elevated fasting glucose of 100. Triglycerides 77. TC 123. LDL 60. HDL 48. He is on artovastatin 80mg daily. PSA 2.00. Mild anemia resolved. [facility] Medical History Family history of abdominal aortic aneurysm Family history of coronary artery disease Abdominal aortic aneurysm without rupture Atherosclerotic cardiovascular disease Surgical History Stented coronary artery Family History Father CAD (coronary artery disease) Mother CAD (coronary artery disease) Social History Housing: House Patient Tobacco Use Status: Never used Tobacco e-Cigarette/Vaping Use: Never Used service: Yes Current occupational status: retired Cognitive needs: No Hearing needs: No Vision needs: Yes (wears prescription glasses) Questionnaire Thrive Questionnaire Date Thrive assessed: 03/16/24 ROBY-7 AMB Questionnaire ROBY-7 Date ROBY - 7 assessed: 03/16/24 Source: Developed by Drs. Brooks Espinoza, Demetrice Tobin, Jarvis Gallegos and colleagues, with an educational aviva from [employer]. Review of Systems Const Denies chills, Denies fatigue, Denies fever(s), Denies headache(s) and Denies weakness ENT Denies dizziness and Denies headache(s) Card Denies dyspnea Resp Denies cough, Denies dyspnea, Denies wheezing and Denies other (shortness of breath) Musc Denies numbness and Denies tingling Neuro Denies dizziness, Denies headache(s), Denies numbness, Denies tingling and Denies weakness Psych Denies anxiety and Denies depression Endo Denies fatigue Aller/Immun Denies wheezing Physical exam (Primary Care) Tobacco/Smoking Status: Tobacco use Status Tobacco use date assessed 03/16/24 05/11/24 15:36 Patient Tobacco Use Status Never used Tobacco 05/11/24 15:36 e-Cigarette/Vaping Use Never Used 05/11/24 15:36 Thrive Assessment: Date of Thrive Assessment Date Thrive assessed 03/16/24 05/11/24 15:36 Telehealth Telehealth Telehealth Platform: Telephone Location of provider rendering services: practice address Location of patient: address on file Patient Identification confirmed using: Name, : Yes Telehealth method: voice only Patient verbally consented to treatment: Yes Patient verbally consented to billing insurance company: Yes Patient informed of any privacy concerns related to visit: Yes Minutes spent on Phone/Video with Pt.: 5 Assessment and Plan Assessment & Plan (1) Hyperlipidemia: Code(s): E78.5 - Hyperlipidemia, unspecified (2) Mild anemia: Code(s): D64.9 - Anemia, unspecified (3) Screening for prostate cancer: Code(s): Z12.5 - Encounter for screening for malignant neoplasm of prostate Coding Level of Care Code Tele Est Pt Level 2 (09238) Diagnoses Hyperlipidemia E78.5 Mild anemia D64.9 Screening for prostate cancer Z12.5
== END ==
PROVIDERS: PCP Family Medicine; Visit Provider Family Medicine
DX: E78.5 Hyperlipidemia, unspecified (principal); D64.9 Anemia, unspecified; Z12.5 Encounter for screening for malignant neoplasm of prostate
CPT/HCPCS: 99441